=== PATIENT | female | born 1995 | race Caucasian/White ===

== ENCOUNTER 2020-02-16 17:50 | Emergency (ER) | payer OTHER ==
[~2020-02-16] VITALS: Ht 162.6 cm; Wt 50.8 kg
--- NOTE | 2020-02-16 18:00 | NUR ---
bibfriend for chest pressure-like pain radiating to left shoulder and palpitations x 2 days, 03/26 ps, to ER bed 2, hooked to traffic monitor specialist, changed to hosp gown, warm blanket provided, awaiting MD simmons.
--- NOTE | 2020-02-16 18:23 | NUR ---
Dr Mazariegos at bedside
[2020-02-16] MEDS ORDERED: KETOROLAC TROMETHAMINE INJ 30 MG/ML VIAL IV ONE (18:30)
[2020-02-16] MEDS ORDERED: IV NS 0.9% 1,000 ML IV ONE (18:30)
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
--- NOTE | 2020-02-16 19:16 | NUR ---
REPORT RECEIVED FROM JESSE BREAUX FOR KR[facility]
[2020-02-16] MEDS ORDERED: KETOROLAC TROMETHAMINE 15 MG/ML VIAL ONE (19:19)
[2020-02-16 19:21] LABS: BASOPHILS % (AUTO) 0.4 % (0.0-2.0); EOSINOPHILS % (AUTO) 0.7 % (0.0-6.0); HEMATOCRIT 40 % (33-45); HEMOGLOBIN 13.5 g/dL (11.5-14.8); LYMPHOCYTES # (AUTO) 2.1 /CMM (0.8-4.8); LYMPHOCYTES % (AUTO) 27.1 % (20.0-44.0); MEAN CORPUSCULAR HGB CONC 34 g/dl (31.0-36.0); MEAN CORPUSCULAR VOLUME 91 fL (82-100); MONOCYTES # (AUTO) 0.4 /CMM (0.1-1.30); MONOCYTES % (AUTO) 5.8 % (2.0-12.0); NEUTROPHILS # (AUTO) 5.1 /CMM (1.8-8.9); PLATELET COUNT (AUTO) 180 /CMM (150-450); RED BLOOD CELL COUNT(AUTO) 4.39 MIL/uL (4.0-5.2); WHITE BLOOD COUNT (AUTO) 7.7 K/uL (4.3-11.0)
[2020-02-16 19:23] LABS: CARBON DIOXIDE 24 mmol/L (21-32); CHLORIDE 103 mmol/L (98-107); CREATININE 0.8 mg/dL (0.6-1.3); GLUCOSE 91 mg/dL (74-106); POTASSIUM 3.8 mmol/L (3.5-5.1); SODIUM SERUM 138 mmol/L (136-145); UREA NITROGEN, BLOOD 13 mg/dL (7-18)
[2020-02-16 19:52] VITALS: BP 78/110
== END 2020-02-16 19:52 | disposition home or self-care (01) ==
LOC: ER 17:56
DX: R07.89 Other chest pain (principal); R00.2 Palpitations; R42 Dizziness and giddiness; R53.1 Weakness; R51 Headache
CPT/HCPCS: 36415; 71045; 80048; 84484; 84703; 85025; 93005; 96361; 96374; 99285; J1885; J7030

== ENCOUNTER 2021-08-09 15:32 | Emergency (ER) | payer OTHER ==
[~2021-08-09] VITALS: Ht 162.6 cm; Wt 59.0 kg
[2021-08-09 16:04] VITALS: BP 132/88
[2021-08-09] MEDS ORDERED: AMOX-430 PO (16:14)
[2021-08-09] MEDS ORDERED: METH4TAB17 PO (16:14)
--- NOTE | 2021-08-09 16:20 | NUR ---
Patient discharged to home in stable condition. Written and verbal after care instructions given. Patient verbalizes understanding of instruction.
== END 2021-08-09 16:26 | disposition home or self-care (01) ==
LOC: ER 15:32
DX: J01.10 Acute frontal sinusitis, unspecified (principal); J01.00 Acute maxillary sinusitis, unspecified; Z79.899 Other long term (current) drug therapy

== ENCOUNTER 2022-01-25 19:28 | Emergency (ER) | payer OTHER ==
[~2022-01-25] VITALS: Ht 162.6 cm; Wt 59.0 kg
[~2022-01-25 19:28] MED LIST: AMOX-430 PO; METH4TAB17 PO
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
--- NOTE | 2022-01-25 21:59 | NUR ---
PATIENT BROUGHT TO RADIOLOGY DEPT FOR CT SCAN/XRAY
[2022-01-25] MEDS ORDERED: IBUPROFEN 600 MG TABLET ONE (22:06)
[2022-01-25] MEDS: IBUPROFEN 600 MG TABLET PO ONE (22:08)
[2022-01-25 23:07] VITALS: BP 112/70
--- NOTE | 2022-01-25 23:07 | NUR ---
Patient discharged to home in stable condition. Written and verbal after care instructions given. Patient verbalizes understanding of instruction.
== END 2022-01-25 23:07 | disposition home or self-care (01) ==
LOC: ER 19:30
DX: S80.811A Abrasion, right lower leg, initial encounter (principal); R51.9 Headache, unspecified; M25.512 Pain in left shoulder; Z79.899 Other long term (current) drug therapy; V49.9XXA Car occupant (driver) (passenger) injured in unspecified traffic accident, initial encounter; Y93.89 Activity, other specified; Y92.89 Other specified places as the place of occurrence of the external cause; Y99.8 Other external cause status
CPT/HCPCS: 70450-TC; 70486-TC; 73030-TC; 73590-TC

== ENCOUNTER 2025-09-14 20:05 | Emergency (ER) | payer OTHER ==
[~2025-09-14] VITALS: Ht 162.6 cm; Wt 65.8 kg
[2025-09-14 21:05] VITALS: BP 108/61; TEMP 98; O2SAT 99
== END 2025-09-14 21:05 | disposition home or self-care (01) ==
LOC: ER 20:14
DX: S80.01XA Contusion of right knee, initial encounter (principal); S80.02XA Contusion of left knee, initial encounter; W01.0XXA Fall on same level from slipping, tripping and stumbling without subsequent striking against object, initial encounter; Y93.89 Activity, other specified; Y92.89 Other specified places as the place of occurrence of the external cause; Y99.8 Other external cause status
CPT/HCPCS: 73564-TC